=== PATIENT | male | born 1970 | race African-American/Black ===

== ENCOUNTER 2022-06-22 10:55 | Emergency (ER) | payer OTHER ==
[2022-06-22 11:56] LABS: #Eosinphils 0.1 10x3/uL (0.0-0.5); #Monocytes 0.7 10x3/uL (0.0-1.1); #Neutrophils 2.3 10x3/uL (1.5-8.4); %Basophils 0.5 % (0.0-2.0); %Eosinophils 1.9 % (0.0-6.0); %Lymphocytes 46.4 % (18.0-47.0); %Monocytes 12.5 % (0.0-10.0); %Neutrophils 38.4 % (40.0-75.0); Hemoglobin 13.8 g/dL (13.5-17.5); Mean Corpuscular HGB CONC 30.9 g/dL (32.0-36.0); Mean Corpuscular Hemoglobin 24.1 pg (27.0-33.0); Mean Platelet Volume 10.3 fl (7.4-10.4); Platelet Count 233 10x3/uL (150-450); RBC Distribution Width 13.4 % (11.5-14.5); Red Blood Cell (RBC) Count 5.73 10x6/uL (4.32-5.72); White Blood Cell (WBC) Count 5.9 10x3/uL (3.5-10.5)
[2022-06-22 12:02] LABS: INR-International Normal Ratio 0.9; PTT 22.5 sec (22.0-33.0); Prothrombin Time 9.9 sec (9.5-12.1)
[2022-06-22] MEDS ORDERED: Iopamidol 370 76% 100 ML VIAL ONE (12:09)
[2022-06-22 12:21] LABS: ALT (SGPT) 8 U/L (8-55); AST (SGOT) 16 U/L (5-34); Albumin 4.2 g/dL (3.5-5.0); Alkaline Phosphatase 142 U/L (40-110); Anion Gap 14 mmol/L (10-20); BUN (Urea Nitrogen) 14 mg/dL (8.4-25.7); Bilirubin, Total 0.2 mg/dL (0.2-1.2); Calc. Creatinine Clearance 0 mL/min (70-130); Calcium 9.5 mg/dL (7.8-10.44); Carbon Dioxide 26 mmol/L (22-29); Chloride 106 mmol/L (98-107); Estimated GFR 104; Globulin 3.5 g/dL (2.4-3.5); Glucose 71 mg/dL (70-105); Potassium 4.3 mmol/L (3.5-5.1); Protein, Total 7.7 g/dL (6.0-8.3); Sodium 142 mmol/L (136-145)
[2022-06-22] MEDS ORDERED: Acetaminophen 500 MG TAB ONE (13:51)
== END 2022-06-22 13:56 ==
LOC: CSHERS 10:55
DX: R60.0 Localized edema (principal); J45.909 Unspecified asthma, uncomplicated; E11.40 Type 2 diabetes mellitus with diabetic neuropathy, unspecified
CPT/HCPCS: 71275; 80053; 84484; 85025; 85610; 85730; 93005; Q9967